=== PATIENT | male | born 1975 | race Caucasian/White ===

== ENCOUNTER 2016-12-04 16:00 | Emergency (ER) | payer OTHER ==
[~2016-12-04 16:00] MED LIST: AMLODIPINE BESY10 MG PO; COREG 3.125M3.125 MG PO; GLUCOPHAGE 500500 MG PO; HYDROCHLOROTHIA25 MG PO; IMDUR ER TAB 6060 MG PO; LIPITOR TAB 2020 MG PO; LISINOPRIL20 MG PO; MOBIC15 MG PO; NORCO 7.5-3251 EACH PO; ZANTAC300 MG PO
== END 2016-12-04 17:45 | disposition home or self-care (01) ==
LOC: ER1 16:00
DX: G89.18 Other acute postprocedural pain (principal); I10 Essential (primary) hypertension; E78.5 Hyperlipidemia, unspecified; E11.9 Type 2 diabetes mellitus without complications; Z90.49 Acquired absence of other specified parts of digestive tract; Z79.899 Other long term (current) drug therapy
CPT/HCPCS: 73090; 96372; 99283; J1885